=== PATIENT | male | born 1980 | race Caucasian/White ===

== ENCOUNTER 2019-05-16 10:46 | Emergency (ER) | payer BC ==
[2019-05-16 11:52] VITALS: BP 110/55; PULSE 110
--- NOTE | 2019-05-16 12:56 | CR ---
DATE OF SERVICE: 05/16/19 CLINICAL DATA: fell on ice today. RIGHT KNEE: Minimal osteoarthritic changes. No acute fracture or dislocation. No lytic or blastic bone lesions. No joint effusion. [id number] MTDD
--- NOTE | 2019-05-16 13:58 | ER ---
HISTORY OF PRESENT ILLNESS: A 38-year-old male here with complaints of injuring his right knee. He slipped and fell early this morning on ice going across a parking lot. He states that it is hard to put much weight on his right leg due to knee pain. He is pointing to the medial side of the knee. He denies any other injuries. OBJECTIVE: GENERAL APPEARANCE: The patient is awake and alert. No obvious distress. VITAL SIGNS: Reviewed. They are normal. EXTREMITIES: Examining the right knee reveals the skin is intact with a mild swelling on the medial side of the knee. There is no bruising or discoloration, and the tenderness is localized to the medial side of the knee. LABORATORY DATA AND X-RAY: The x-ray of the knee was obtained. I do not see any fracture or acute bony abnormality. DIAGNOSIS: Contusion injury to right knee. TREATMENT PLAN: Conservative measures. The patient will be using an Edson wrap. He refuses crutches. He is to use ibuprofen alternating with Tylenol. Elevate and ice his injured leg as much as possible over the next couple of days. 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 He thinks he can do this. He will just put his weight on the left leg getting in and out of the truck. I advised the patient that if this does not work well, he should consider light duty for a few days, and if his symptoms do not significantly improve over the next few days, he is to come into the clinic for recheck and consideration for an MRI. PARAMJIT/ABIODUNL /[id number]
== END 2019-05-16 12:02 | disposition home or self-care (01) ==
LOC: LB.ED 10:46
DX: S80.01XA Contusion of right knee, initial encounter (principal); W00.0XXA Fall on same level due to ice and snow, initial encounter; Y92.481 Parking lot as the place of occurrence of the external cause
CPT/HCPCS: 73560-RT; 99283-25